=== PATIENT | female | born 1970 | race Caucasian/White ===

== ENCOUNTER 2024-01-14 11:12 | Emergency (ER) | payer OTHER, SELFPAY ==
[2024-01-14 11:16] VITALS: BP 143/84
[2024-01-14 11:28] VITALS: BP 156/71
[2024-01-14 11:46] LABS: % Basophils 0.2 % (0-2); % Immature Granulocytes 0.2 % (0-0.5); % Lymphocytes 27.6 % (20.5-51.1); % Monocytes 12.9 % (1.7-9.3); % Neutrophils 59.1 % (42.2-75.2); Absolute Lymphocytes 1.3 10^3/uL (1.2-3.4); Absolute Monocytes 0.6 10^3/uL (0.1-0.6); Absolute Neutrophils 2.7 10^3/uL (1.4-6.5); Hematocrit 37.2 % (37.0-47.0); Hemoglobin 13.3 g/dL (12.0-16.0); Mean Corp Hgb Conc. 35.8 g/dL (33.0-37.0); Mean Corpuscular Hgb 31.7 pg (27.0-31.0); Mean Corpuscular Volume 88.8 fL (81.0-99.0); Mean Platelet Volume 11.6 fL (7.4-10.4); Nucleated Red Blood Cells % 0 %; Platelet Count 182 10^3/uL (130-400); Red Blood Cell Count 4.19 10^6/uL (4.20-5.40); Red Cell Dist. Width 14.6 % (11.5-14.5); White Blood Cell Count 4.6 10^3/uL (4.8-10.8)
[2024-01-14 11:57] LABS: ALT (SGPT) 14 U/L (0-35); AST (SGOT) 20 U/L (14-36); Albumin 4.4 g/dl (3.5-5.0); Alkaline Phosphatase 62 U/L (38-126); Blood Urea Nitrogen 13 mg/dl (7-17); Calcium 9.6 mg/dl (8.4-10.2); Carbon Dioxide 27 mmol/L (22-30); Chloride 105 mmol/L (98-107); Glucose 103 mg/dl (70-99); Potassium 4.1 mmol/L (3.5-5.1); Sodium 138 mmol/L (135-145); Total Bilirubin 0.5 mg/dl (0.2-1.3); Total Protein 6.4 g/dl (6.3-8.2); eGFR > 60.00
[2024-01-14 12:09] LABS: Troponin I < 0.012 ng/ml
--- NOTE | 2024-01-14 12:09 | ED.GENMED ---
History of Present Illness
General
Chief Complaint: Heart Rate Problem
Source: patient
Exam Limitations: none
Time Seen by Provider: 01/14/24 11:40
Nursing documentation reviewed up to this point in time: agreed with
History of Present Illness
History of Present Illness:
The patient is a very nice 54-year-old female with a past medical history of CLL who comes in with complaints of 5 days of palpitations. Patient is having PVCs on the monitor and feels each and every 1 while in the room. She denies chest pain or
shortness of breath. She denies new medication, alcohol use and increased caffeine.
Past History
Past History
ED Past Medical History: Cancer (CLL) and Other ('irregular heart beat s/p ablation')
ED Past Surgical History: Other (abblation)
Social History
Tobacco: Non-smoker
Alcohol: None
Drug: None
Personal: Other
Living: with family
Employment: Other
Family History
Family History: Other
Review of Systems
Review of Systems
Allergies reviewed?: Yes
All Other Systems: ROS reviewed and negative except as documented in HPI and ROS
Constitutional: Reports no symptoms
EENT: Reports no symptoms
Respiratory: Reports no symptoms
Cardiac: Reports palpitations
ABD/GI: Reports no symptoms
: Reports no symptoms
Musculoskeletal: Reports no symptoms
Skin: Reports no symptoms
Neurological: Reports no symptoms
Endocrine: Reports no symptoms
Hematologic/Lymphatic: Reports no symptoms
Psychiatric: Reports no symptoms
Phy Exam
Physical Exam
Physical Exam:
Physical Exam
General: no apparent distress, not acutely ill
Neck: supple. no meningeal signs. normal psoterior pharynx
Heart: s1/s2 regular rate and rhythm, no murmur. equal radial pulses.
Lungs: no acute respiratory distress. clear bilaterally
Abdomen: normal bowel sounds. not tender. no CVAT
Neuro: alert and oriented. no focal neurological deficits
Skin: no rash
Psychiatric: well kept. interactive and cooperative
Extremities: no edema. no calf tenderness. negative homans. good distal pulses
Course
Orders/Labs/Results
Orders:
Orders
01/14/24 11:15
Electrocardiogram (*1) Urgent
Reason for Study: Palpitations
EKG- Treatment ONCE
01/14/24 11:38
Complete Blood Count/With Diff Urgent
Comprehensive Metabolic Panel Urgent
Troponin I Urgent
01/14/24 12:50
Add On- LAB Urgent
Tests Added?: magnesium, TSH
01/14/24 12:53
Metoprolol Xl [Toprol Xl] 25 mg PO NOW STA
Abnormal Lab Results
01/14/24
11:38
WBC 4.6 L 10^3/uL
(4.8-10.8)
RBC 4.19 L 10^6/uL
(4.20-5.40)
MCH 31.7 H pg
(27.0-31.0)
RDW 14.6 H %
(11.5-14.5)
MPV 11.6 H fL
(7.4-10.4)
Monocytes % 12.9 H %
(1.7-9.3)
Glucose 103 H mg/dl
(70-99)
01/14/24 11:38
01/14/24 11:38
Vital Signs
Initial and Last Documented VS:
Initial Vital Signs
Temp Pulse Resp BP Pulse Ox
98.0 F 85 16 143/84 98
01/14/24 11:16 01/14/24 11:16 01/14/24 11:16 01/14/24 11:16 01/14/24 11:16
Last Documented Vital Signs
Temp Pulse Resp BP Pulse Ox
98.0 F 82 16 156/71 95
01/14/24 11:16 01/14/24 13:34 01/14/24 12:00 01/14/24 11:28 01/14/24 12:00
MDM/Problems Addressed
Differential Diagnosis Includes:
PVCs, a flutter, A-fib
MDM/Problems Addressed:
Patient presents with acute palpitations
*Pulse Oximetry
Patient hypoxic: no
*EKG
Interpreted by ED Provider?: Yes
Interpretation: normal
Comparison EKG: no changes
Rate: normal
Rhythm: sinus
[place]: left axis deviation
Interval: normal interval
QRS Pattern: normal QRS
Ischemia: no ischemia
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
Rate: normal
Interpretation: normal
Rhythm: sinus and PVC's
*Critical Care Note
Total Time (30-74mins, 75-104mins- exclusive of procedures): Not Applicable
Patient Management
Social determinants of health affecting care: Living situation and Strong social support
Discussion with other providers: Other (Spoke to Dr. Maradiaga from cardiology who recommended 12.5 to 25 mg of Toprol XL)
ED Attending Note
-
Portions of this chart may have been created with voice recognition software.� Occasional wrong word or��sound alike� substitutions may have occurred due to the inherent limitations of voice recognition software.
Discharge Plan
Departure
Prescriptions:
No Action
bupropion HCl 150 MG tablet sustained-release 12 hr
150 mg PO DAILY
desvenlafaxine succinate [Pristiq] 50 MG tablet extended release 24 hr
50 mg PO Q48H
desvenlafaxine succinate [Pristiq] 100 MG tablet extended release 24 hr
100 mg PO Q48H
Patient Comments:
alternates with the 50 mg dose
lamotrigine [Lamictal XR] 100 MG tablet extended release 24hr
100 mg PO DAILY
Referrals:
Brooks Martinez DO [Family Provider] -
Interventions
Interventions:
*Risk Screen - Suicide Last Done: 01/14/24 12:04
*General Assessment Last Done: 01/14/24 12:04
*Neglect/Abuse Screening Last Done: 01/14/24 12:04
*ED COVID-19 Vaccine History Last Done: 01/14/24 11:16
ED- Cardiac Assessment Last Done: 01/14/24 12:04
ED- Pulmonary Assessment Last Done: 01/14/24 12:04
Discharge Date and Time
Print Language: MONEGASQUE
[2024-01-14] MEDS: TOPROL XL 25 MG PO (13:34)
[2024-01-14 14:35] LABS: Magnesium 1.9 mg/dl (1.6-2.3)
[2024-01-14 15:22] LABS: TSH 3.04 uIU/ml (0.47-4.68)
== END 2024-01-14 14:29 | disposition home or self-care (01) ==
LOC: EMR 11:12
PROVIDERS: EMERGENCY PHYSICIAN Emergency Medicine; FAMILY PHYSICIAN Family Medicine
DX: R00.2 Palpitations (principal); C91.10 Chronic lymphocytic leukemia of B-cell type not having achieved remission
CPT/HCPCS: 99283; 80053; 83735; 84443; 84484; 85025; 93005

== ENCOUNTER → 2024-01-29 10:41 | Outpatient (REF) | payer OTHER, SELFPAY | LOC: RCS 10:41 | PROVIDERS: ATTENDING PHYSICIAN Internal Medicine Cardiovascular Disease; FAMILY PHYSICIAN Nurse Practitioner Family | DX: I49.3 Ventricular premature depolarization (principal); E78.2 Mixed hyperlipidemia | CPT/HCPCS: 93017 ==

== ENCOUNTER → 2024-02-12 13:18 | Outpatient (REF) | payer OTHER, SELFPAY | LOC: HWWDC 13:18 | PROVIDERS: ATTENDING PHYSICIAN Internal Medicine Hematology & Oncology; FAMILY PHYSICIAN Family Medicine | DX: Z12.31 Encounter for screening mammogram for malignant neoplasm of breast (principal) | CPT/HCPCS: 77063; 77067 ==

== ENCOUNTER → 2024-02-13 10:13 | Outpatient (REF) | payer OTHER, SELFPAY | LOC: HWRCS 10:13 | PROVIDERS: ATTENDING PHYSICIAN Internal Medicine Cardiovascular Disease; FAMILY PHYSICIAN Nurse Practitioner Family | DX: R00.2 Palpitations (principal) | CPT/HCPCS: 93306 ==

== ENCOUNTER 2025-01-31 01:34 | Inpatient (IN) | payer OTHER, SELFPAY ==
[2025-01-30] VITALS (8 sets, daily range): BP systolic 145–214; BP diastolic 76–122; BMI 32.3
[2025-01-30 21:48] LABS: Glucose - Point of Care 312 mg/dl (70-99)
[2025-01-30 22:18] LABS: Hematocrit 41.2 % (37.0-47.0); Hemoglobin 14.0 g/dL (12.0-16.0); Mean Corp Hgb Conc. 34.0 g/dL (33.0-37.0); Mean Corpuscular Volume 94.9 fL (81.0-99.0); Nucleated Red Blood Cells % 0 %; Platelet Count 216 10^3/uL (130-400); Red Cell Dist. Width 11.9 % (11.5-14.5)
[2025-01-30 22:20] LABS: B.E. -14.9 mmol/L; O2 Saturation % 100.0 % (94-98); PCO2 49 mmHg (32-35); PO2 294 mmHg (83-108)
[2025-01-30 22:24] LABS: HCO3 14.9 mmol/L (21-28)
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
[2025-01-30 22:27] LABS: INR 1.07; PT 14.4 Sec (11.4-14.6)
[2025-01-30 22:30] LABS: HCG, Serum Qualitative Screen Negative
[2025-01-30 22:32] LABS: AST (SGOT) 73 U/L (14-36); Albumin 4.7 g/dl (3.5-5.0); Alkaline Phosphatase 61 U/L (38-126); Blood Urea Nitrogen 15 mg/dl (7-17); Calcium 9.0 mg/dl (8.4-10.2); Carbon Dioxide 16 mmol/L (22-30); Chloride 106 mmol/L (98-107); Estimated Creatinine Clearance 54 ml/min; Glucose 380 mg/dl (70-99); Potassium 5.0 mmol/L (3.5-5.1); Sodium 135 mmol/L (135-145); Total Protein 6.5 g/dl (6.3-8.2); eGFR 48.56
[2025-01-30 22:43] LABS: ALT (SGPT) 57 U/L (0-35)
[2025-01-30 22:43] LABS: Troponin I < 0.012 ng/ml
[2025-01-30 22:58] LABS: Triglycerides 123 mg/dl (10-149)
--- NOTE | 2025-01-30 23:05 | PHANOTE ---
01/30/2025, pt. in code status at time of interview; used recent pharmacy records and [facility] records from 09/16/2024 to compile a list of her meds.; could not confirm w/ another source.
[2025-01-30] MEDS: SUBLIMAZE 90 MCG IV (23:14)
[2025-01-30 23:16] LABS: Magnesium 2.3 mg/dl (1.6-2.3)
[2025-01-30] MEDS: SUBLIMAZE 100 IV (23:19)
[2025-01-31] VITALS (26 sets, daily range): BP systolic 82–176; BP diastolic 51–120; BMI 31.4
[2025-01-31] MEDS: ROCEPHIN 1000 MG IV (00:16)
[2025-01-31 00:20] LABS: Urine Character Clear (Clear)
[2025-01-31] MEDS: MAGNESIUM SULFATE 50 IV (00:25)
[2025-01-31 00:34] LABS: Urine Squamous Cell 16-20 /LPF (Few)
[2025-01-31 00:36] LABS: Urine Red Blood Cell 21-25 /HPF (0-2); Urine White Cell 0-2 /HPF (0-5)
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
[2025-01-31] MEDS: SUBLIMAZE 50 MCG IV ×2 (01:14→01:57)
[2025-01-31 01:22] LABS: APTT 22.2 Sec (23.4-35.0)
[2025-01-31 01:37] LABS: Acetaminophen < 10 ug/ml (10-30); Salicylate < 1.0 mg/dl (2.0-20.0)
[2025-01-31 01:44] LABS: Prealbumin (Transthyretin) 25.3 mg/dl (17.6-36.0)
[2025-01-31 01:51] LABS: Glucose - Point of Care 267 mg/dl (70-99)
[2025-01-31] MEDS: VERSED 5 MG IV ×2 (01:52→02:06)
[2025-01-31] MEDS: DIPRIVAN 100 IV ×5 (01:54→18:19)
--- NOTE | 2025-01-31 02:00 | PTCARENOTE ---
Resumed care of pt, report obtained for Eve ESQUEDA in ED. Pt arrived to ICU unresponsive, intubated on vent. Pt with clamped jaw and biting down on ETT. Pt needing multiple doses of PRN medication in order to safely place bite block on unlock Jaw
from ETT. POX 96% on ordered vent settings, see work list. Lungs course with scattered Rhonchi. Suctioned for thick brown secretions. HR in the 140's on the monitor. Pupils fixed and pinpoint, no corneal reflexes present, absent gag, no cough
present. No purposeful movements noted. TTM protocol initiated per MD order. See work list. Right femeral Central line in place, right wrist #[address] Temp sensing salmeron placed in ED. Right nare NGT secured at 56cm placed in ED. Sacral
foam, b/l heel foams placed per protocol. socks on hands and feet. Amberly RELIGION TEACHER at bedside to place left radial Matilde. Pt closely monitored. Will continue to monitor.
[2025-01-31] MEDS: ZOSYN 50 IV ×4 (02:06→19:39)
[2025-01-31] MEDS: LEVOPHED 250 IV ×5 (02:07→12:48)
[2025-01-31] MEDS: TYLENOL ORAL SOLUTION 650 MG TUBE ×5 (02:14→23:39)
[2025-01-31] MEDS: BUSPAR 30 MG TUBE ×4 (02:15→23:39)
--- NOTE | 2025-01-31 02:34 | W.PN.UPDATE ---
Update Note
Progress Note Update
ARTERIAL LINE (A-Line) PLACEMENT
Date: 01/31/2025
Time: 0200
Indication: Hemodynamic monitoring, consent implied emergent
A time-out was completed verifying correct patient, procedure, site, positioning, and special equipment if applicable. Mark�s test was performed to ensure adequate perfusion. The patient�s left wrist was prepped and draped in sterile fashion. A 20G
Arrow arterial line was introduced into the radial artery. The catheter was threaded over the guide wire and the needle was removed with appropriate pulsatile�blood return. A sterile dressing applied. Perfusion to the extremity distal to the point
of catheter insertion was checked and found to be adequate.
Estimated Blood Loss: <5cc
The patient tolerated the procedure well and there were no complications.
[2025-01-31] MEDS: NSS 1000 IV (02:47)
[2025-01-31] MEDS: VANCOCIN 540 MG IV (03:01)
--- NOTE | 2025-01-31 03:14 | W.PN.UPDATE ---
Update Note
Progress Note Update
01/31/2025
0145- Patient teeth clamped down on ETT, unable to suction or ventilate patient effectively. Currently on fentanyl infusion and propofol without effect. Versed IV push given and additional fentanyl IV bolus, then patient given 1x paralytic
vecuronium, bite block was able to be placed. Sedation propofol and fentanyl titrated, levophed gtt added for hypotenion secondary to sedation.
[2025-01-31 04:19] LABS: Hematocrit 41.1 % (37.0-47.0); Hemoglobin 14.3 g/dL (12.0-16.0); Mean Corp Hgb Conc. 34.8 g/dL (33.0-37.0); Mean Corpuscular Volume 92.8 fL (81.0-99.0); Nucleated Red Blood Cells % 0 %; Platelet Count 211 10^3/uL (130-400); Red Cell Dist. Width 12.1 % (11.5-14.5)
[2025-01-31 04:41] LABS: INR 1.11; PT 14.8 Sec (11.4-14.6)
[2025-01-31 04:42] LABS: APTT 25.7 Sec (23.4-35.0)
[2025-01-31 04:43] LABS: Triglycerides 290 mg/dl (10-149)
[2025-01-31 04:50] LABS: B.E. -12.9 mmol/L; O2 Saturation % 99.2 % (94-98); PCO2 35 mmHg (32-35); PO2 169 mmHg (83-108)
[2025-01-31 04:52] LABS: Prealbumin (Transthyretin) 22.5 mg/dl (17.6-36.0)
[2025-01-31 04:53] LABS: HCO3 14.0 mmol/L (21-28)
[2025-01-31 04:54] LABS: ALT (SGPT) 56 U/L (0-35); AST (SGOT) 95 U/L (14-36); Albumin 3.9 g/dl (3.5-5.0); Alkaline Phosphatase 64 U/L (38-126); Blood Urea Nitrogen 21 mg/dl (7-17); Calcium 8.3 mg/dl (8.4-10.2); Carbon Dioxide 13 mmol/L (22-30); Chloride 114 mmol/L (98-107); Estimated Creatinine Clearance 47 ml/min; Glucose 205 mg/dl (70-99); HDL Cholesterol 52 mg/dl; LDL Cholesterol, Calculated 153 mg/dl; Magnesium 2.6 mg/dl (1.6-2.3); Potassium 3.6 mmol/L (3.5-5.1); Sodium 136 mmol/L (135-145); Total Protein 5.7 g/dl (6.3-8.2); Very Low Density Lipoprotein 58 mg/dl (0-30); eGFR 41.41
[2025-01-31] MEDS: SUBLIMAZE 100 IV ×4 (05:06→20:26)
[2025-01-31 05:07] LABS: CKMB 15.0 ng/ml (0.0-3.4)
[2025-01-31] MEDS: SODIUM BICARBONATE 1150 MEQ IV ×3 (05:19→23:31)
[2025-01-31 05:25] LABS: Troponin I 1.700 ng/ml
[2025-01-31] MEDS: KCL 50 IV (05:37)
[2025-01-31 05:56] LABS: Glucose - Point of Care 232 mg/dl (70-99)
[2025-01-31] MEDS: NOVOLIN R 4 UNITS IV (06:25)
[2025-01-31] MEDS: NOVOLIN R INSULIN INFUSION 100 IV (06:37)
[2025-01-31 06:58] LABS: Glucose - Point of Care 258 mg/dl (70-99)
--- NOTE | 2025-01-31 07:15 | PTCARENOTE ---
Handoff report. Cerrebell intact with 0% seizure. Pt with pinpoint pupils, upward gaze and right foot clonus, no cough, no gag, no corneal reflexes. Ventilated. Right femoral TL CVC with fentanyl, propofol, norepinephrine, and bicarb drips. Right FA
#20g protective catheter with Insulin per CCGP. TTM maintained. #7.5 ETT secured, tolerating AC 16/450/.60/+5. Breath sounds coarse throughout, bloody secretions via ETT. Right nare DHT secured 55cm, verified with air bolus clamped at this time due
to med administration a short time ago. Bloody secretions noted. Temperature sensing salmeron catheter to gravity drain. Yellow urine draining. Aspiration precautions maintained. Safe environment maintained.
--- NOTE | 2025-01-31 07:26 | PTCARENOTE ---
TTM protocol maintained t/o the night. Goal temp obtained at 0645. Pt having some cardiac arrythmias on the monitor this am. Close monitoring maintained. SEE MAR for medications. See worklist for documentation. Pt remains unresponsive. Lucia ESQUEDA to
resume care.
[2025-01-31 07:40] LABS: Glycohemoglobin (HgbA1c) 5.6 % (4.0-5.6)
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
[2025-01-31 08:15] LABS: Glucose - Point of Care 215 mg/dl (70-99)
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
[2025-01-31] MEDS: MIRALAX 17 GRAMS TUBE (09:20)
[2025-01-31] MEDS: REFRESH CELLUVISC GEL 1 DROPS OPHTH ×2 (09:22→19:39)
[2025-01-31] MEDS: REFRESH CELLUVISC GEL OPHTH (09:23)
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
[2025-01-31 09:41] LABS: Glucose - Point of Care 154 mg/dl (70-99)
--- NOTE | 2025-01-31 10:36 | W.RAPID.EEG ---
Rapid EEG
-
Procedure Date: 01/30/25
Results:
Point of Care EEG Procedure Note
Patient name: CAROLYN CEVALLOS
Medical ID: [id number]
Date of : 1970
Age: 55
IMPRESSION:
Absence of status epilepticus
Recording 1 Duration: 2025-01-30 23:06:00 - 2025-01-31 09:43:17
Recording Total Time: 10:37:17 (637 minutes)
Ordering Physician: DR. MUNOZ
Recording Technique: This EEG was obtained using a 10 lead, 8 channel circumferential rapid EEG with no parasagittal coverage.
Performed with Edelmira Fernandez Status Epilepticus Monitor, ICD-10 [id number]
Clinical History: CAROLYN CEVALLOS is a 55 year old Cardiac Arrest patient undergoing EEG to screen for non-convulsive status epilepticus.
Primary Indication: Cardiac Arrest
Location: ED
Background: The background was discontinuous, variable and not clearly reactive
Report prepared by: Thierry Ely
Report generated on: Jan 31, 2025 10:47 AM UTC-4
[2025-01-31 10:51] LABS: Glucose - Point of Care 119 mg/dl (70-99)
[2025-01-31 11:04] LABS: Glucose - Point of Care 112 mg/dl (70-99)
[2025-01-31 11:17] LABS: COVID-19 Antigen Negative (Negative)
[2025-01-31 11:39] LABS: Troponin I 1.210 ng/ml
--- NOTE | 2025-01-31 11:50 | CARDSERVDEF ---
Echocardiogram with Definity completed after protocol screening completed. Allergies verified.
Patent IV site: _R fem central line____
IV site flushed with 0.9% NaCl pre and post administration.
Diluted bolus method utilized to enhance visualization of ventricular lazo.
Total volume given: __2__ mL
Patient tolerated all procedures well without complications.
[2025-01-31 11:52] LABS: CKMB 23.6 ng/ml (0.0-3.4)
[2025-01-31] MEDS: NSS (PRESERVATIVE FREE) 10 ML IV (12:00)
[2025-01-31] MEDS: PROTONIX IV 40 MG IV (12:00)
--- NOTE | 2025-01-31 12:17 | PHA.VAN.IN ---
Assessment
- Assessment
Renal Function: Unknown baseline
Maximum Temperature: 99.4
Minimum Temperature: 37.5
Concomitant Antimicrobials: Piperacillin/Tazobactam
Plan
- Plan
Initial / Loading Dose: 2000mg on 01/31
Maintenance Regimen: Dose by level
Monitoring: Random level on 02/01 @0600
Pharmacokinetics Vancomycin I
- -
Patient Age: 55
Patient Sex: Female
Vancomycin Day #: 1
Indication: Pulmonary/Respiratory
Requesting Provider: Dr. Juares/Dr. Go
Height / Weight:
Height 5 ft 5 in
Actual Weight 85.6 kg
- Vital Signs / Lab Results
Temp Pulse Resp BP Pulse Ox
92.8 F L 83 16 132/95 96
01/31/25 11:13 01/31/25 11:30 01/31/25 11:30 01/31/25 10:00 01/31/25 11:20
Lab Results - Hematology
01/30/25 01/31/25
22:09 04:06
WBC 10.5 12.0 H
Lab Results - Chemistry
01/30/25 01/31/25
22:08 04:06
BUN 15 21 H
Creatinine 1.3 H 1.5 H
Estimated Creat Clear 54 47
Albumin 4.7 3.9
01/30/25 01/31/25 01/31/25
22:09 02:00 02:15
Lactic Acid 7.1 H* Cancelled Cancelled
01/31/25 01/31/25 01/31/25
04:06 08:15 10:27
Lactic Acid 2.8 H Cancelled 3.7 H
01/31/25 01/31/25
14:15 20:15
Lactic Acid Cancelled Cancelled
Lab Results - Urine
01/30/25
23:45
Urine Nitrite (Reflex) Negative
Leukocyte Esterase Rfl Negative
Urine WBC (Reflex) 0-2
Ur Squamous Epith Cells 16-20
Urine Bacteria (Reflex) Moderate A
Microbiology Results
01/31/25 10:27 Influenza Types A & B (SAM) - Final
Nasal Swab Negative for Influenza A & B, NAAT
Negative results must be combined with clinical observations
and patient history.
Nucleic Acid Amplification test (NAAT)performed on the
[employer] NOW platform.
[2025-01-31 12:27] LABS: Glucose - Point of Care 177 mg/dl (70-99)
[2025-01-31 12:35] LABS: Hematocrit 39.6 % (37.0-47.0); Hemoglobin 14.4 g/dL (12.0-16.0); Mean Corp Hgb Conc. 36.4 g/dL (33.0-37.0); Mean Corpuscular Volume 88.6 fL (81.0-99.0); Platelet Count 193 10^3/uL (130-400); Red Cell Dist. Width 12.0 % (11.5-14.5)
[2025-01-31 12:45] LABS: ALT (SGPT) 57 U/L (0-35); AST (SGOT) 78 U/L (14-36); Albumin 3.7 g/dl (3.5-5.0); Alkaline Phosphatase 53 U/L (38-126); Blood Urea Nitrogen 23 mg/dl (7-17); Calcium 7.9 mg/dl (8.4-10.2); Carbon Dioxide 17 mmol/L (22-30); Chloride 109 mmol/L (98-107); Estimated Creatinine Clearance 54 ml/min; Glucose 162 mg/dl (70-99); Magnesium 2.1 mg/dl (1.6-2.3); Potassium 2.8 mmol/L (3.5-5.1); Sodium 134 mmol/L (135-145); Total Protein 5.5 g/dl (6.3-8.2); eGFR 49.17
[2025-01-31 13:04] LABS: Nucleated Red Blood Cells % 0 %
[2025-01-31 13:16] LABS: Glucose - Point of Care 135 mg/dl (70-99)
--- NOTE | 2025-01-31 13:36 | CM ---
Patient intubated. Initial assessment completed with 2 sons. Patient lives alone in a 2nd floor apartment with no steps into the building and 12 to the apartment. 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 No
DME or in-home services. No psychiatric hospitalizations. No service. Unknown if there is a HC-POA. PCP is unknown. Pharmacy is [facility] on [address] [facility] in [place]. Discharge POC: TBD based on medical progression.
[2025-01-31] MEDS: KCL ELIXIR 40 MEQ TUBE (13:55)
[2025-01-31] MEDS: KCL 100 IV (13:56)
--- NOTE | 2025-01-31 14:34 | PTCARENOTE ---
Propofol decreased to 25mcg/kg/min as per Neurologist d/t/excessive suppressions on cEEG.
[2025-01-31 14:42] LABS: Glucose - Point of Care 174 mg/dl (70-99)
[2025-01-31] MEDS: LEVOPHED 258 MG IV ×2 (14:53→23:31)
--- NOTE | 2025-01-31 15:15 | EEG.RPT ---
Electroencephalogram Report
Recording
Date of EE01/31/25
Type of EEG: Routine
Length of EEG recordin minutes
Done with Video Recording: Yes
Patient Status: Inpatient
Recording Conditions: Other
Hyperventilation Performed: No
Photic Stimulation Performed: Yes
Report
LESS THAN 1 HOUR REPORT
LESS THAN 1 HOUR EEG INTERPRETATION:
Severely abnormal study for age based on bihemispheric burst-suppression pattern continuously during the study.
CLINICAL CORRELATION:
This study was suggestive of severe and continuous bihemispheric dysfunction which may have several causes including metabolic and anoxic injury.
Clinical correlation is advised.
METHODS:
A 21 channel digitized electroencephalogram (EEG) was performed at the bedside in the intensive care unit. The 10/20 international system of electrode placement was used with ECG and lateral/vertical eye movements recorded. Video was recorded. The
RADLIVE quantitative EEG analysis system was performed.
ELECTROENCEPHALOGRAPHER IMPRESSION(S):
Quality of study
Fair to good
Background
Poorly organized bursts of electrical activity of up to 1.5 seconds was at maximum of theta frequency with a poor anterior to posterior gradient.
Bursts of activity were of high amplitude, representing a burst-suppression pattern with suppressions of up to 20 seconds were demonstrated.
Sleep
Unable to discern
Hyperventilation
Not performed
Photic Stimulation
Failed to activate the record
ECG
Normal rhythm
--- NOTE | 2025-01-31 15:45 | PTCARENOTE ---
PM care performed. CHG bath provided along with partial linen change. Skin assessment benign except for left hip small circular blue ecchymotic area. Otherwise limbs elevated on pillows. Aspiration and seizure precautions maintained. Will continue
to provide supportive care to her family.
[2025-01-31 16:31] LABS: Glucose - Point of Care 202 mg/dl (70-99)
[2025-01-31 16:38] LABS: Hematocrit 38.4 % (37.0-47.0); Hemoglobin 13.7 g/dL (12.0-16.0); Mean Corp Hgb Conc. 35.7 g/dL (33.0-37.0); Mean Corpuscular Volume 88.3 fL (81.0-99.0); Nucleated Red Blood Cells % 0 %; Platelet Count 166 10^3/uL (130-400); Red Cell Dist. Width 12.1 % (11.5-14.5)
[2025-01-31 16:46] LABS: ALT (SGPT) 57 U/L (0-35); AST (SGOT) 71 U/L (14-36); Albumin 3.4 g/dl (3.5-5.0); Alkaline Phosphatase 52 U/L (38-126); Blood Urea Nitrogen 22 mg/dl (7-17); Calcium 7.8 mg/dl (8.4-10.2); Carbon Dioxide 16 mmol/L (22-30); Chloride 107 mmol/L (98-107); Estimated Creatinine Clearance 59 ml/min; Glucose 191 mg/dl (70-99); Magnesium 2.3 mg/dl (1.6-2.3); Potassium 4.7 mmol/L (3.5-5.1); Sodium 131 mmol/L (135-145); Total Protein 5.1 g/dl (6.3-8.2); eGFR 54.13
[2025-01-31 16:58] LABS: Troponin I 1.000 ng/ml
[2025-01-31 17:05] LABS: CKMB 28.5 ng/ml (0.0-3.4)
--- NOTE | 2025-01-31 17:23 | PTCARENOTE ---
Serial troponin's dc'd due to last two have shawanda on the decline per Dr. Go. Pt now bradycardia in the 50's with SBP dipping to 88 & MAP 72 & holding. Norepinephrine titrated to 13mcg/min. Pt's son's and extended family have gone home. They were
provided updates throughout the day and were able to get the pt's PCP to fax over health history with medication list. They are aware to be prepared for the worst and reminded that we are doing everything we can. Safe environment maintained.
[2025-01-31 17:41] LABS: Glucose - Point of Care 148 mg/dl (70-99)
--- NOTE | 2025-01-31 18:08 | PTCARENOTE ---
Dr. Go, Dr. Hu and Dr. Ely TT's that her eyes are intermittently opening partially along with movement of her feet and abdomen. Spoke with Dr. Hu regarding these findings, no RX at this time. Will continue to monitor.
--- NOTE | 2025-01-31 18:58 | PTCARENOTE ---
Dr. Seay notified via TT regarding more twitching movements of her feet more frequently along with her chin and eyes twitching as well. This is new due to the fact that it is more frequent and involving her chin. Orders obtained over the phone.
[2025-01-31] MEDS: KEPPRA 2000 MG IV (19:40)
[2025-01-31 19:42] LABS: Glucose - Point of Care 154 mg/dl (70-99)
--- NOTE | 2025-01-31 20:00 | PTCARENOTE ---
Resumed care of pt intubated sedated on vent with TTM protocol in place via the [place]. Pt completely unresponsive, pupils fixed and pin point with gaze upward, corneal reflexes absent. Pt with noted facial twitching and eyelid movement along
with B/L foot switching. Continuous EEG in place. HR SB with prolonged QT on the monitor with HR in the high 50's to low 60's. POX 96% with #7.[address] at 25cm to center lip on current vent settings; AC 16, TV 450, FIO2 40%, Peep 5. Lungs
course with scattered Rhonchi, dec @ bases. Right Nare NGT in place draining brown liquid. Round obese abd, hypo bowel sounds. Weak pedal pulses present. Knee high seq in place. Left radial [place] in place. Right Femeral central line in place
infusing Bicarb gtt, fentanyl gtt, Propofol, Levophed, Vasopressin as ordered per protocol. Right wrist #20 int infusing Insulin gtt per critical care glycemic protocol. Temp sensing Ash catheter in place for critical I/O. sacral foam, B/L heel
foams present for protection. Left hip bruise noted. Socks to hand and feet per protocol. 3 kids at bedside updated on pt status, all questions answered. Will continue to monitor.
[2025-01-31 20:11] LABS: B.E. -5.3 mmol/L; HCO3 19.1 mmol/L (21-28); O2 Saturation % 99.2 % (94-98); PCO2 33 mmHg (32-35); PO2 113 mmHg (83-108)
[2025-01-31 21:39] LABS: Glucose - Point of Care 143 mg/dl (70-99)
[2025-01-31 23:45] LABS: Glucose - Point of Care 127 mg/dl (70-99)
[2025-01-31] MEDS: PITRESSIN 100 IV (23:45)
[2025-02-01] VITALS (9 sets, daily range): BP systolic 73–137; BP diastolic 57–84; BMI 32.5
[2025-02-01] MEDS: DIPRIVAN 100 IV ×3 (00:35→10:07)
[2025-02-01 00:41] LABS: Hematocrit 35.3 % (37.0-47.0); Hemoglobin 13.1 g/dL (12.0-16.0); Mean Corp Hgb Conc. 37.1 g/dL (33.0-37.0); Mean Corpuscular Volume 86.9 fL (81.0-99.0); Nucleated Red Blood Cells % 0 %; Platelet Count 153 10^3/uL (130-400); Red Cell Dist. Width 11.9 % (11.5-14.5)
--- NOTE | 2025-02-01 00:41 | PTCARENOTE ---
Levophed being tapered down as BP allows. HR becoming more bradycardic with HR in the 40's. Izzy CASTELLANO notified, Vasopressin turned off at this time. ETT moved to right side with assist from RT. New ETT seymour now in place. No other changes in
assessment noted at this time. TTM protocol maintained. EEG monitoring in place. Will continue to monitor.
[2025-02-01 00:59] LABS: ALT (SGPT) 56 U/L (0-35); AST (SGOT) 68 U/L (14-36); Albumin 3.3 g/dl (3.5-5.0); Alkaline Phosphatase 51 U/L (38-126); Blood Urea Nitrogen 26 mg/dl (7-17); Calcium 7.4 mg/dl (8.4-10.2); Carbon Dioxide 20 mmol/L (22-30); Chloride 104 mmol/L (98-107); Estimated Creatinine Clearance 59 ml/min; Glucose 145 mg/dl (70-99); Magnesium 2.2 mg/dl (1.6-2.3); Potassium 3.7 mmol/L (3.5-5.1); Sodium 132 mmol/L (135-145); Total Protein 4.9 g/dl (6.3-8.2); eGFR 54.13
[2025-02-01 01:21] LABS: CKMB 29.9 ng/ml (0.0-3.4)
[2025-02-01 01:45] LABS: Glucose - Point of Care 120 mg/dl (70-99)
[2025-02-01] MEDS: ZOSYN 50 IV ×3 (01:46→13:35)
[2025-02-01] MEDS: SUBLIMAZE 100 IV ×3 (02:39→12:54)
[2025-02-01 03:31] LABS: Hematocrit 34.0 % (37.0-47.0); Hemoglobin 12.7 g/dL (12.0-16.0); Mean Corp Hgb Conc. 37.4 g/dL (33.0-37.0); Mean Corpuscular Volume 85.4 fL (81.0-99.0); Nucleated Red Blood Cells % 0 %; Platelet Count 142 10^3/uL (130-400); Red Cell Dist. Width 11.9 % (11.5-14.5)
[2025-02-01 03:38] LABS: INR 1.08; PT 14.3 Sec (11.4-14.6)
[2025-02-01 03:39] LABS: APTT 30.1 Sec (23.4-35.0)
[2025-02-01 03:46] LABS: B.E. 0.1 mmol/L; HCO3 23.6 mmol/L (21-28); O2 Saturation % 98.0 % (94-98); PCO2 34 mmHg (32-35); PO2 85 mmHg (83-108); Potassium 3.2 mMOL/L (3.5-5.1); Sodium 131 mMOL/L (136-145)
[2025-02-01 03:56] LABS: Prealbumin (Transthyretin) 18.6 mg/dl (17.6-36.0)
--- NOTE | 2025-02-01 04:00 | PTCARENOTE ---
Pt now shivering. TTM Shivering protocol initiated. AM lab work obtained. All drips titrated as allowed per MD orders, see Flowsheet for specific documentation. CHG bath provided. Linens changed. Face washed, oral care complete. Pt repositioned.
Plan of care discussed with Izzy CASTELLANO. Will continue to monitor closely.
[2025-02-01 04:11] LABS: CKMB 30.4 ng/ml (0.0-3.4)
[2025-02-01 04:12] LABS: ALT (SGPT) 53 U/L (0-35); AST (SGOT) 69 U/L (14-36); Albumin 3.2 g/dl (3.5-5.0); Alkaline Phosphatase 53 U/L (38-126); Blood Urea Nitrogen 26 mg/dl (7-17); Calcium 7.2 mg/dl (8.4-10.2); Carbon Dioxide 23 mmol/L (22-30); Chloride 103 mmol/L (98-107); Estimated Creatinine Clearance 64 ml/min; Glucose 134 mg/dl (70-99); Magnesium 2.1 mg/dl (1.6-2.3); Potassium 3.4 mmol/L (3.5-5.1); Sodium 131 mmol/L (135-145); Total Protein 4.8 g/dl (6.3-8.2); eGFR > 60.00
[2025-02-01] MEDS: SUBLIMAZE 50 MCG IV (04:37)
[2025-02-01] MEDS: TYLENOL ORAL SOLUTION 650 MG TUBE ×2 (05:34→12:10)
--- NOTE | 2025-02-01 05:52 | PTCARENOTE ---
Rewarming now initiated per TTM protocol. See Flowsheet. Pt with positive response to Propofol titration, pt shivering much improved. No other changes in assessment noted at this time. Will continue to monitor.
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
--- NOTE | 2025-02-01 07:15 | PTCARENOTE ---
vital signs filed from previous shift.
[2025-02-01 07:43] LABS: Glucose - Point of Care 95 mg/dl (70-99)
[2025-02-01] MEDS: SODIUM BICARBONATE 1150 MEQ IV (08:02)
[2025-02-01] MEDS: PROTONIX IV 40 MG IV (08:03)
[2025-02-01] MEDS: KEPPRA 500 MG IV (08:03)
[2025-02-01] MEDS: NSS (PRESERVATIVE FREE) 10 ML IV (08:03)
[2025-02-01] MEDS: BUSPAR 30 MG TUBE (08:04)
[2025-02-01] MEDS: REFRESH CELLUVISC GEL 1 DROPS OPHTH (08:04)
[2025-02-01] MEDS: MIRALAX 17 GRAMS TUBE (08:04)
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
[2025-02-01 08:55] LABS: Glucose - Point of Care 123 mg/dl (70-99)
[2025-02-01 08:55] LABS: Glucose - Point of Care 129 mg/dl (70-99)
[2025-02-01 08:55] LABS: Glucose - Point of Care 143 mg/dl (70-99)
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
[2025-02-01 09:27] LABS: ALT (SGPT) 47 U/L (0-35); AST (SGOT) 68 U/L (14-36); Albumin 3.0 g/dl (3.5-5.0); Alkaline Phosphatase 44 U/L (38-126); Blood Urea Nitrogen 27 mg/dl (7-17); Calcium 7.0 mg/dl (8.4-10.2); Carbon Dioxide 25 mmol/L (22-30); Chloride 101 mmol/L (98-107); Estimated Creatinine Clearance 72 ml/min; Glucose 120 mg/dl (70-99); Magnesium 1.9 mg/dl (1.6-2.3); Potassium 3.1 mmol/L (3.5-5.1); Sodium 131 mmol/L (135-145); Total Protein 4.6 g/dl (6.3-8.2); eGFR > 60.00
[2025-02-01 09:57] LABS: Glucose - Point of Care 111 mg/dl (70-99)
[2025-02-01] MEDS: LR 1000 IV (10:02)
[2025-02-01 10:13] LABS: Hematocrit 31.8 % (37.0-47.0); Hemoglobin 12.1 g/dL (12.0-16.0); Mean Corp Hgb Conc. 38.1 g/dL (33.0-37.0); Mean Corpuscular Volume 85.5 fL (81.0-99.0); Nucleated Red Blood Cells % 0 %; Platelet Count 144 10^3/uL (130-400); Red Cell Dist. Width 12.0 % (11.5-14.5)
[2025-02-01 10:15] LABS: CKMB 24.3 ng/ml (0.0-3.4)
[2025-02-01] MEDS: CALCIUM GLUCONATE 100 IV (10:33)
--- NOTE | 2025-02-01 10:38 | PTCARENOTE ---
0715 recd pt handoff at bedside, gtts confirmed, TTM continues, suit maintained, in rewarming phase. Unresponsive, no seizure activity observed and no shivering, continuous EEG in place. occas twitching hyperreflexic upgoing of bilat feet but
short lived and very intermittent. Unrestrained. See assessment documentation. Titrating levophed as ordered along [facility] propofol per discussion [facility] Severo Hu and Melvin. Seen by Dr. Rangel, bladder scanned with inability to irrigate salmeron,
80-100 ml, salmeron replaced wtih temp sensing catheter and urine return approx 150 ml lauren. CXR obtained. Serial labs as ordered, results to Dr. Hu and electrolyte repletions in progress see MAR. Updated boyfriend briefly by phone. Seen also
by Dr. Seay.
[2025-02-01 11:04] LABS: Glucose - Point of Care 115 mg/dl (70-99)
[2025-02-01] MEDS: LEVOPHED 258 MG IV (11:17)
[2025-02-01] MEDS: LASIX 40 MG IV (11:29)
[2025-02-01] MEDS: KCL 100 IV (11:30)
[2025-02-01] MEDS: VERSED 5 MG IV ×3 (12:10→16:15)
[2025-02-01 12:12] LABS: Glucose - Point of Care 115 mg/dl (70-99)
--- NOTE | 2025-02-01 12:37 | PTCARENOTE ---
12 lead obtained, versed given for overall stiffness, temp curve finally improving with slow rewarm. Dr. Seay here to speak with family, support offered to ezra Gallardo. glucose obtained, insulin remains off and sugars q2h now. ETT moved. Eyes
open at times, no focus, track.
[2025-02-01 13:19] LABS: B.E. 3.1 mmol/L; HCO3 27.0 mmol/L (21-28); O2 Saturation % 96.3 % (94-98); PCO2 38 mmHg (32-35); PO2 73 mmHg (83-108)
[2025-02-01 13:25] LABS: Hematocrit 32.8 % (37.0-47.0); Hemoglobin 12.2 g/dL (12.0-16.0); Mean Corp Hgb Conc. 37.2 g/dL (33.0-37.0); Mean Corpuscular Volume 86.1 fL (81.0-99.0); Nucleated Red Blood Cells % 0 %; Platelet Count 115 10^3/uL (130-400); Red Cell Dist. Width 12.1 % (11.5-14.5)
[2025-02-01 13:41] LABS: ALT (SGPT) 50 U/L (0-35); AST (SGOT) 84 U/L (14-36); Albumin 3.2 g/dl (3.5-5.0); Alkaline Phosphatase 51 U/L (38-126); Blood Urea Nitrogen 25 mg/dl (7-17); Calcium 7.9 mg/dl (8.4-10.2); Carbon Dioxide 24 mmol/L (22-30); Chloride 99 mmol/L (98-107); Estimated Creatinine Clearance 72 ml/min; Glucose 127 mg/dl (70-99); Magnesium 1.8 mg/dl (1.6-2.3); Potassium 3.2 mmol/L (3.5-5.1); Sodium 131 mmol/L (135-145); Total Protein 4.8 g/dl (6.3-8.2); eGFR > 60.00
--- NOTE | 2025-02-01 14:19 | W.PN.UPDATE ---
Addendum entered and electronically signed by Kaylynn Hu MD 02/01/25 16:57:
Pt extubated for comfort
pt tx to [place]
family was present and have left. Asked to be notified with any changes
We will sign off. Please call with questions
Addendum entered and electronically signed by Kaylynn Hu MD 02/01/25 15:36:
All IV medications discontinued
Comfort measures will be initiated
Propofol has been weaned off
Patient currently is spontaneously breathing when placed on CPAP
Maintain fentanyl drip, bolus as needed for comfort
Versed as needed for comfort
Once family is ready, will terminally extubate to comfort
Reviewed at length with family (children)
Reviewed with critical care nursing
Original Note:
Update Note
Progress Note Update
Family has requested to discuss clinical course and possible withdrawal of care
Reviewed prognosis with neurology
Family also aware of conversation with neurology both yesterday and today. They were told about extremely poor prognosis, unlikelihood for recovery
Spoke with 3 children, ex-
Reviewed clinical course to date
Family has expressed wishes to withdraw care
Reviewed process at length as they have many questions with regards to timeline and process
Reviewed that patient does occasionally spontaneously breathe and is not brain- but has significant brain injury per exam, imaging and neurological clinical assessment
Reviewed that typically we would wait another 24 to 48 hours to assess neurological status, given TTM protocol, as patient is currently undergoing rewarming phase, and that ideally would reassess neurological status after achieving normal
temperature and assess neurological status 24 to 48 hours thereafter.
However, family has stated that given extremely grim prognosis, and notion that the patient would not want to be in current state (which was supported by children and sister), they would like to proceed towards comfort measures, withdrawal of care
They are unaware of any will or advanced directive
I have contacted case management to confirm whether there may be an advanced directive or living well.
Children, ex-, sister not aware of any document.
However, according to children, sister has had conversations with patient and patient would not want to be on life support in current clinical state with current poor prognosis
Family has also requested a rabbi to be present
Moving forward
We will proceed with requesting a rabbi
Family would like to perform final visit and goodbye over the next few hours
Will await case management to confirm whether there is any living will or advanced directive documentation in the [facility]
Reviewed above at length with 3 children, ex-, girlfriends, sister. Reviewed the second time with 3 children alone
Reviewed with critical care nursing, respiratory care
Updated primary service and consultants
TCCT 40 min
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
--- NOTE | 2025-02-01 16:00 | CHAP ---
Received requests from ICU staff for a prayer blanket and for a Rabbi. Brought a blanket and contacted Edgardobi Prus by voicemail and text. Sat with family in the waiting area as they shared their pain and grief. Emotional and spiritual support
provided. Edgardobi Prus did not respond, and family then wished to simply say their goodbyes to Maynor in their own way.
--- NOTE | 2025-02-01 16:23 | W.PN.DEATH ---
Pronouncement of
-
Called to see patient to pronounce.
No spontaneous heart tones or respirations noted.
Patient not responsive to verbal stimuli.
Patient is pronounced .
Time of : 15:01
Date of : 02/01/25
[2025-02-01] MEDS: SUBLIMAZE 100 MCG IV (16:28)
--- NOTE | 2025-02-01 16:45 | PTCARENOTE ---
extubated to comfort per MD order after dose versed 5 mg. Apneic for approx 30 seconds then resp rate noted 24, shallow, HOB up, arms supported, still with some resp effort, see RDOS and medicated with fentanyl bolus 100 mcg per step 7. some soft
music on in background, oral care and skin care given gently. Infusion only fentanyl at this time, on room air. Difficult to obtain pulse ox.
--- NOTE | 2025-02-01 18:38 | PTCARENOTE ---
progressive slowing and hypotension, resps more shallow, apneic approx 1811 and asystolic 1814, see strips. Pronounced by [employer] INSTRU[employer] in ICU, Dr. Rangel also notified. [place] spoke with ezra Gallardo to update and offer condolences. Post mortem care, lines
removed.
--- NOTE | 2025-02-01 18:51 | W.PN.DEATH ---
Pronouncement of
-
Called to see patient to pronounce.
No spontaneous heart tones or respirations noted.
Patient not responsive to verbal stimuli.
Patient is pronounced .
Time of : 18:15
Date of : 02/01/25
Cause of : Multisystem organ failure due to ventricular fibrillation arrest
Family Notified: Yes
--- NOTE | 2025-02-01 19:01 | PTCARENOTE ---
postmortem care, [facility] life notified, taken to morgue via morgue stretcher.
--- NOTE | 2025-02-03 08:59 | CM ---
Patient 02/01/25 @ 18:15.
--- NOTE | 2025-02-05 11:39 | EEG.RPT ---
Electroencephalogram Report
Recording
Date of EE01/31/25
--- NOTE | 2025-02-05 11:39 | EEGC.RPT ---
Continuous EEG Report
Recording
Start Date of Data Reviewed: 01/31/25
Start Time of Data Reviewed: 10:00
End Date of Data Reviewed: 02/01/25
End Time of Data Reviewed: 14:30
Type of EEG: Continuous
Done with Video Recording: Yes
Study Sequence: Initiation of Study
Electrocardiogram: Unremarkable
Report
24 HOUR CONTINUOUS EEG REPORT
24 HOUR CONTINUOUS EEG INTERPRETATION:
Severely abnormal EEG for age in wakefulness through drowsiness due to burst suppression pattern
CLINICAL CORRELATION:
This study was suggestive of severe bihemispheric cortical dysfunction
Clinical correlation is advised.
METHODS:
A 21 channel digitized electroencephalogram (EEG) was performed at the bedside in the intensive care unit. The 10/20 international system of electrode placement was used. ECG was monitored. Persyst quantitative analysis was performed.
ELECTROENCEPHALOGRAPHER IMPRESSION(S):
Quality
Good
Background
Maximum: Delta, poorly organized
Amplitude: Low
Anterior-posterior gradient: Absent
Photic stimulation
Failed to produce activation of the record
Sleep
Not demonstrated
Abnormal EEG activity
Isoelectric suppressions of cortical activity lasting for up to at times approximately 90 seconds were interrupted by bursts of poorly organized delta activity lasting for approximately 1�2 seconds.
Electrocardiogram
Unremarkable
== END 2025-02-01 19:03 | disposition expired ==
LOC: ICU 01:34
PROVIDERS: Nurse Practitioner Family; Nurse Practitioner Primary Care; ADMITTING PHYSICIAN Hospitalist; ATTENDING PHYSICIAN Internal Medicine; CONSULT PHYSICIAN Internal Medicine Cardiovascular Disease; CONSULT PHYSICIAN Internal Medicine Critical Care Medicine; CONSULT PHYSICIAN Psychiatry & Neurology Neurology; EMERGENCY PHYSICIAN Emergency Medicine
PROC: 5A1935Z Respiratory Ventilation, Less than 24 Consecutive Hours (ICD-10-PCS; 2025-01-31)
DX: I49.01 Ventricular fibrillation (principal); G92.8 Other toxic encephalopathy; I21.A1 Myocardial infarction type 2; J69.0 Pneumonitis due to inhalation of food and vomit; J96.01 Acute respiratory failure with hypoxia; S06.30AA Unspecified focal traumatic brain injury with loss of consciousness status unknown, initial encounter; G93.1 Anoxic brain damage, not elsewhere classified; E87.20 Acidosis, unspecified; C91.10 Chronic lymphocytic leukemia of B-cell type not having achieved remission; N17.9 Acute kidney failure, unspecified; I46.2 Cardiac arrest due to underlying cardiac condition; I47.21 Torsades de pointes; F41.9 Anxiety disorder, unspecified; F32.A Depression, unspecified; E78.5 Hyperlipidemia, unspecified; F17.200 Nicotine dependence, unspecified, uncomplicated; I49.3 Ventricular premature depolarization; V47.5XXA Car driver injured in collision with fixed or stationary object in traffic accident, initial encounter; Y92.410 Unspecified street and highway as the place of occurrence of the external cause; Z79.899 Other long term (current) drug therapy
CPT/HCPCS: 31500; 36556; 51702; 70450; 71045; 71275; 72125; 74177; 80053; 80061; 80143; 80179; 80202; 80306; 81003; 81015; 82077; 82330; 82550; 82553; 82805; 82962; 83036; 83605; 83735; 83880; 84100; 84132; 84134; 84302; 84443; 84478; 84484; 84703; 85025; 85610; 85730; 87040; 87086; 87147; 87154; 87205; 87502; 87641; 87811; 93005; 93306; 94002; 94003; 95705; 95714; 95816; 96365; 96366; 96367; 96375; 96376; 99291; 99292; Q9967